=== PATIENT | female | born 1945 | race Caucasian/White ===

== ENCOUNTER 2018-01-20 21:39 | Inpatient (IN) ==
[2018-01-20 22:39] LABS: Basophils # 0.1 10*3/uL (0.0-0.2); Basophils % 0.4 % (0.0-0.8); Eosinophils # 0.1 10*3/uL (0.0-0.87); Eosinophils % 0.4 % (0.00-10.9); Hemoglobin 14.5 GM/DL (12.0-16.0); Immature Granulocytes % 0.7 %; Immature Granulocytes Absolute 0.09 #; Lymphocytes # 1.8 10*3/uL (1.4-4.0); Lymphocytes % 13.1 % (21.3-54.2); Mean Corpuscular Hemoglobin 28 PG (27-34); Mean Corpuscular Volume 84.6 FL (87-102); Mean Platelet Volume 9.5 FL (9.6-12.0); Monocytes # 0.7 10*3/uL (0.11-0.8); Monocytes % 5.2 % (1.7-12.7); Neutrophils # 11.1 10*3/uL (1.4-7.4); Neutrophils % 80.2 % (38.7-73.9); Platelet Count 410 T/CUMM (130-400); Red Cell Distribution Width 13.6 % (9.3-17.3); White Blood Count 13.8 T/CUMM (4-12)
[2018-01-20] MEDS ORDERED: VANCOMYCIN INJ 1,000 MG in SODIUM CHLORIDE 0.9% 250 ML IV STA (22:41)
[2018-01-20] MEDS ORDERED: SODIUM CHLORIDE 0.9% 500 ML IV STA (22:41)
[2018-01-20 22:52] LABS: Apearance,Urine CLOUDY (Clear); Bacteria,Urine Many /HPF (Few); Bilirubin,Urine Negative (Negative); Blood, Urine Small mg/dL (Negative); Glucose,Urine (UA) Negative (Negative); Hyaline Casts,Urine 45 /LPF (0-3); Ketones,Urine Negative (Negative); Nitrite,Urine Negative (Negative); Protein,Urine 30 MG/DL; Urine Color Amber (Yellow); Urine Specific Gravity 1.013 (1.001-1.035); WBC,Urine 844 /HPF (0-6)
[2018-01-20 22:53] LABS: Albumin 2.7 G/DL (3.4-5.0); Bilirubin,Total 0.8 MG/DL (0.2-1.0); CKMB % 3.6 %; Calcium 8.1 MG/DL (8.5-10.1); Potassium 2.6 MMOL/L (3.5-5.1); Troponin I Only 0.02 NG/ML (0.00-0.045)
[2018-01-20 22:54] LABS: PT Patient Result 10.5 SECS; Partial Thromboplastin Time 25.7 SECS (0-40)
[2018-01-21] MEDS ORDERED: VANCOMYCIN 1,000 MG VIAL ONE (00:31)
[2018-01-21 00:49] LABS: Lactic Acid 1.9 MMOL/L (0.4-2.0)
[2018-01-21] MEDS ORDERED: SODIUM CHLORIDE 0.9% 1,000 ML IV SCH (01:30)
[2018-01-21] MEDS ORDERED: PIPERACILLIN/TAZOBACTAM 3,375 MG VIAL IV ONE (02:09)
[2018-01-21] MEDS ORDERED: SODIUM CHLORIDE 0.9% 100 ML IV ONE (02:10)
[2018-01-21] MEDS ORDERED: POTASSIUM CHLORIDE 20 MEQ TABLET PO ONE (02:10)
[2018-01-21] MEDS: POTASSIUM CHLORIDE 20 MEQ TABLET PO SCH ×2 (02:25→06:04)
[2018-01-21] MEDS: PIPERACILLIN/TAZOBACTAM 3,375 MG in SODIUM CHLORIDE 0.9% 100 ML IV SCH ×3 (02:26→17:24)
[2018-01-21] MEDS ORDERED: PNEUMOCOCCAL VACCINE (13 VALENT) 0.5 ML SYRINGE IM ONE (05:20)
[2018-01-21] MEDS ORDERED: GLUCAGON 1 MG VIAL IM PRN (06:38)
[2018-01-21] MEDS ORDERED: DEXTROSE 50% 25 GM/50 ML VIAL IV PRN (06:38)
[2018-01-21 06:45] LABS: Basophils # 0.1 10*3/uL (0.0-0.2); Basophils % 0.5 % (0.0-0.8); Eosinophils # 0.1 10*3/uL (0.0-0.87); Eosinophils % 0.9 % (0.00-10.9); Hematocrit 39.1 VOL% (35.7-47.0); Hemoglobin 12.6 GM/DL (12.0-16.0); Immature Granulocytes % 0.9 %; Immature Granulocytes Absolute 0.09 #; Lymphocytes # 1.8 10*3/uL (1.4-4.0); Lymphocytes % 17.4 % (21.3-54.2); Mean Corpuscular HGB Conc 32.2 GM/DL (32-36); Mean Corpuscular Hemoglobin 28 PG (27-34); Mean Corpuscular Volume 85.7 FL (87-102); Mean Platelet Volume 9.5 FL (9.6-12.0); Monocytes # 0.7 10*3/uL (0.11-0.8); Monocytes % 6.5 % (1.7-12.7); Neutrophils # 7.5 10*3/uL (1.4-7.4); Neutrophils % 73.8 % (38.7-73.9); Platelet Count 333 T/CUMM (130-400); Red Blood Count 4.56 MC/CUMM (3.8-5.5); Red Cell Distribution Width 13.7 % (9.3-17.3); White Blood Count 10.2 T/CUMM (4-12)
[2018-01-21 07:07] LABS: Calcium 7.7 MG/DL (8.5-10.1); Osmolality,Calculated 278.5 MOS/KG (273-304); Potassium 2.9 MMOL/L (3.5-5.1)
[2018-01-21] MEDS: INSULIN LISPRO 100 UNIT/ML SUBCUT SCH ×4 (07:49→22:47)
[2018-01-21] MEDS ORDERED: amLODIPine 5 MG TABLET PO SCH (09:00)
[2018-01-21] MEDS ORDERED: FERROUS GLUCONATE 324 MG TABLET PO SCH (09:00)
[2018-01-21] MEDS ORDERED: HALOPERIDOL 5 MG TABLET PO SCH (09:00)
[2018-01-21] MEDS: ENOXAPARIN 40 MG/0.4 ML SYRINGE SUBCUT SCH (09:47)
[2018-01-21] MEDS: GENTAMICIN 0.3% OPH SOLN 5 ML BOTTLE BOTH EYES SCH ×4 (09:47→20:44)
[2018-01-21] MEDS ORDERED: SKIN HEALING OINT (AQUAPHOR) 50 GM TUBE TOP PRN (10:38)
[2018-01-21] MEDS: DESITIN 4OZ/NYSTATIN 15 GRAM MIXTURE PASTE TOP SCH ×2 (10:55→20:44)
[2018-01-21] MEDS ORDERED: MORPHINE 2 MG/1 ML SYRINGE IV PRN (11:23)
[2018-01-21] MEDS ORDERED: TUBERCULIN SKIN TEST 0.1 ML SYRINGE INTRADERM ONE (15:47)
[2018-01-21] MEDS: BACITRACIN OINT 0.9 GM PACK TOP SCH (16:54)
[2018-01-21] MEDS ORDERED: CHLORHEXIDINE 4% SOLN 118 ML BOTTLE TOP ONE (17:00)
[2018-01-21] MEDS: SODIUM CHLOR 0.9% KCL 20 MEQ 20 MEQ/1,000 ML BAG IV SCH (17:22)
[2018-01-21] MEDS ORDERED: SIMVASTATIN 20 MG TABLET PO SCH (21:00)
[2018-01-21] MEDS ORDERED: ONDANSETRON 4 MG/2 ML VIAL IV PRN (21:22)
[2018-01-22] MEDS: PIPERACILLIN/TAZOBACTAM 3,375 MG in SODIUM CHLORIDE 0.9% 100 ML IV SCH ×3 (03:03→17:25)
[2018-01-22] MEDS: GENTAMICIN 0.3% OPH SOLN 5 ML BOTTLE BOTH EYES SCH ×6 (03:03→21:34)
[2018-01-22 06:34] LABS: Basophils % 0.4 % (0.0-0.8); Eosinophils # 0.1 10*3/uL (0.0-0.87); Eosinophils % 1.3 % (0.00-10.9); Hematocrit 32.1 VOL% (35.7-47.0); Hemoglobin 10.6 GM/DL (12.0-16.0); Immature Granulocytes % 0.5 %; Immature Granulocytes Absolute 0.04 #; Lymphocytes # 1.8 10*3/uL (1.4-4.0); Lymphocytes % 23.3 % (21.3-54.2); Mean Corpuscular Hemoglobin 28 PG (27-34); Mean Corpuscular Volume 84.5 FL (87-102); Mean Platelet Volume 9.4 FL (9.6-12.0); Monocytes # 0.5 10*3/uL (0.11-0.8); Neutrophils # 5.4 10*3/uL (1.4-7.4); Neutrophils % 68.5 % (38.7-73.9); Platelet Count 268 T/CUMM (130-400); Red Cell Distribution Width 14.1 % (9.3-17.3); White Blood Count 7.9 T/CUMM (4-12)
[2018-01-22 07:03] LABS: Calcium 7.2 MG/DL (8.5-10.1); Potassium 2.8 MMOL/L (3.5-5.1)
[2018-01-22] MEDS: INSULIN LISPRO 100 UNIT/ML SUBCUT SCH ×4 (08:48→20:46)
[2018-01-22] MEDS: ENOXAPARIN 40 MG/0.4 ML SYRINGE SUBCUT SCH (08:49)
[2018-01-22] MEDS: FLUCONAZOLE 200 MG TABLET PO SCH (08:49)
[2018-01-22] MEDS: DESITIN 4OZ/NYSTATIN 15 GRAM MIXTURE PASTE TOP SCH ×2 (08:50→21:37)
[2018-01-22] MEDS: SODIUM CHLOR 0.9% KCL 20 MEQ 20 MEQ/1,000 ML BAG IV SCH ×2 (08:50→08:51)
[2018-01-22] MEDS: BACITRACIN OINT 0.9 GM PACK TOP SCH (09:01)
[2018-01-23] MEDS: SODIUM CHLOR 0.9% KCL 20 MEQ 20 MEQ/1,000 ML BAG IV SCH ×4 (01:27→16:47)
[2018-01-23] MEDS: PIPERACILLIN/TAZOBACTAM 3,375 MG in SODIUM CHLORIDE 0.9% 100 ML IV SCH ×3 (02:26→17:03)
[2018-01-23] MEDS: GENTAMICIN 0.3% OPH SOLN 5 ML BOTTLE BOTH EYES SCH ×6 (02:27→21:12)
[2018-01-23 06:15] LABS: Basophils % 0.4 % (0.0-0.8); Eosinophils # 0.1 10*3/uL (0.0-0.87); Hematocrit 31.7 VOL% (35.7-47.0); Hemoglobin 10.5 GM/DL (12.0-16.0); Immature Granulocytes % 0.6 %; Immature Granulocytes Absolute 0.04 #; Lymphocytes # 2.1 10*3/uL (1.4-4.0); Mean Corpuscular HGB Conc 33.1 GM/DL (32-36); Mean Corpuscular Hemoglobin 28 PG (27-34); Mean Corpuscular Volume 84.8 FL (87-102); Mean Platelet Volume 9.3 FL (9.6-12.0); Monocytes # 0.3 10*3/uL (0.11-0.8); Monocytes % 4.4 % (1.7-12.7); Neutrophils # 4.3 10*3/uL (1.4-7.4); Neutrophils % 63.6 % (38.7-73.9); Platelet Count 276 T/CUMM (130-400); Red Blood Count 3.74 MC/CUMM (3.8-5.5); Red Cell Distribution Width 14.2 % (9.3-17.3); White Blood Count 6.8 T/CUMM (4-12)
[2018-01-23 06:54] LABS: Calcium 7.5 MG/DL (8.5-10.1); Osmolality,Calculated 277.3 MOS/KG (273-304)
[2018-01-23] MEDS: INSULIN LISPRO 100 UNIT/ML SUBCUT SCH ×4 (08:33→21:11)
[2018-01-23] MEDS: ENOXAPARIN 40 MG/0.4 ML SYRINGE SUBCUT SCH (08:41)
[2018-01-23] MEDS: FLUCONAZOLE 200 MG TABLET PO SCH (08:41)
[2018-01-23] MEDS: DESITIN 4OZ/NYSTATIN 15 GRAM MIXTURE PASTE TOP SCH ×2 (08:41→21:14)
[2018-01-23] MEDS: BACITRACIN OINT 0.9 GM PACK TOP SCH (10:55)
[2018-01-23] MEDS: ACETAMINOPHEN 325 MG TABLET PO PRN (15:34)
[2018-01-24] MEDS ORDERED: ALBUTEROL/IPRATROPIUM 3 ML NEB RESP TX ONE (01:18)
[2018-01-24] MEDS: PIPERACILLIN/TAZOBACTAM 3,375 MG in SODIUM CHLORIDE 0.9% 100 ML IV SCH ×3 (01:29→16:45)
[2018-01-24] MEDS: GENTAMICIN 0.3% OPH SOLN 5 ML BOTTLE BOTH EYES SCH ×6 (01:31→21:36)
[2018-01-24] MEDS: SODIUM CHLOR 0.9% KCL 20 MEQ 20 MEQ/1,000 ML BAG IV SCH ×2 (05:34→08:47)
[2018-01-24 05:46] LABS: Basophils % 0.3 % (0.0-0.8); Eosinophils # 0.1 10*3/uL (0.0-0.87); Eosinophils % 1.3 % (0.00-10.9); Hematocrit 32.4 VOL% (35.7-47.0); Hemoglobin 10.3 GM/DL (12.0-16.0); Immature Granulocytes % 0.7 %; Immature Granulocytes Absolute 0.05 #; Lymphocytes # 1.8 10*3/uL (1.4-4.0); Lymphocytes % 25.4 % (21.3-54.2); Mean Corpuscular HGB Conc 31.8 GM/DL (32-36); Mean Corpuscular Hemoglobin 28 PG (27-34); Mean Corpuscular Volume 86.4 FL (87-102); Mean Platelet Volume 9.5 FL (9.6-12.0); Monocytes # 0.4 10*3/uL (0.11-0.8); Monocytes % 4.9 % (1.7-12.7); Neutrophils # 4.8 10*3/uL (1.4-7.4); Neutrophils % 67.4 % (38.7-73.9); Platelet Count 264 T/CUMM (130-400); Red Blood Count 3.75 MC/CUMM (3.8-5.5); White Blood Count 7.1 T/CUMM (4-12)
[2018-01-24 06:21] LABS: Calcium 7.3 MG/DL (8.5-10.1); Potassium 3.1 MMOL/L (3.5-5.1)
[2018-01-24] MEDS: FLUCONAZOLE 200 MG TABLET PO SCH (08:44)
[2018-01-24] MEDS: INSULIN LISPRO 100 UNIT/ML SUBCUT SCH ×4 (08:44→21:39)
[2018-01-24] MEDS: DESITIN 4OZ/NYSTATIN 15 GRAM MIXTURE PASTE TOP SCH ×2 (08:45→21:36)
[2018-01-24] MEDS: ENOXAPARIN 40 MG/0.4 ML SYRINGE SUBCUT SCH (08:45)
[2018-01-24] MEDS: BACITRACIN OINT 0.9 GM PACK TOP SCH (09:48)
[2018-01-24 10:34] LABS: Alanine Aminotransferase < 6 U/L (13-56); Albumin 1.8 G/DL (3.4-5.0); Alkaline Phosphatase 131 U/L (45-117); Aspartate Amino Transferase 15 U/L (0-37); Bilirubin,Total < 0.39 MG/DL (0.2-1.0); Blood Urea Nitrogen 8 MG/DL (7-18); Calcium 7.3 MG/DL (8.5-10.1); Glucose 98 MG/DL (74-106); Potassium 3.1 MMOL/L (3.5-5.1); Sodium 143 MMOL/L (136-145); Total Protein 5.2 G/DL (6.4-8.3)
[2018-01-24] MEDS: POTASSIUM CHLORIDE RIDER 10 MEQ in PREMIX 1 EACH IV PRN ×4 (13:01→22:01)
[2018-01-24] MEDS: ACETAMINOPHEN 325 MG TABLET PO PRN (22:02)
[2018-01-25] MEDS: GENTAMICIN 0.3% OPH SOLN 5 ML BOTTLE BOTH EYES SCH ×6 (02:14→22:17)
[2018-01-25] MEDS: PIPERACILLIN/TAZOBACTAM 3,375 MG in SODIUM CHLORIDE 0.9% 100 ML IV SCH ×3 (02:15→17:24)
[2018-01-25] MEDS: SODIUM CHLOR 0.9% KCL 20 MEQ 20 MEQ/1,000 ML BAG IV SCH ×2 (02:23→13:24)
[2018-01-25] MEDS: INSULIN LISPRO 100 UNIT/ML SUBCUT SCH ×4 (07:36→22:18)
[2018-01-25] MEDS: ENOXAPARIN 40 MG/0.4 ML SYRINGE SUBCUT SCH (09:10)
[2018-01-25] MEDS: ACETAMINOPHEN 325 MG TABLET PO PRN (09:10)
[2018-01-25] MEDS: BACITRACIN OINT 0.9 GM PACK TOP SCH (09:11)
[2018-01-25] MEDS: DESITIN 4OZ/NYSTATIN 15 GRAM MIXTURE PASTE TOP SCH ×2 (09:11→22:17)
[2018-01-26] MEDS: PIPERACILLIN/TAZOBACTAM 3,375 MG in SODIUM CHLORIDE 0.9% 100 ML IV SCH ×2 (01:01→08:23)
[2018-01-26] MEDS: SODIUM CHLOR 0.9% KCL 20 MEQ 20 MEQ/1,000 ML BAG IV SCH ×2 (01:02→05:00)
[2018-01-26] MEDS: GENTAMICIN 0.3% OPH SOLN 5 ML BOTTLE BOTH EYES SCH ×4 (01:02→12:51)
[2018-01-26] MEDS: INSULIN LISPRO 100 UNIT/ML SUBCUT SCH ×2 (07:55→11:58)
[2018-01-26] MEDS: ENOXAPARIN 40 MG/0.4 ML SYRINGE SUBCUT SCH (08:23)
[2018-01-26] MEDS: DESITIN 4OZ/NYSTATIN 15 GRAM MIXTURE PASTE TOP SCH (08:24)
[2018-01-26] MEDS: BACITRACIN OINT 0.9 GM PACK TOP SCH (08:24)
[2018-01-26] MEDS: ACETAMINOPHEN 325 MG TABLET PO PRN (10:55)
[2018-01-26 12:07] VITALS: BP 145/81
[2018-01-27] MEDS ORDERED: PIOGLITAZONE 15 MG TABLET PO SCH (09:00)
[2018-01-27] MEDS ORDERED: amLODIPine 5 MG TABLET PO SCH (09:00)
[2018-01-27] MEDS ORDERED: HALOPERIDOL 5 MG TABLET PO SCH (09:00)
== END 2018-01-26 14:27 | DRG 689 ==
LOC: EDBD → EDUNIT# → N.ED 21:39 → N.EDINP 01-21 01:17 → N.2E 01-21 03:00
PROVIDERS: ADMIT Family Medicine; ATTEND Family Medicine

== ENCOUNTER 2022-07-02 06:22 | Inpatient (IN) ==
[2022-07-02] MEDS ORDERED: ONDANSETRON 4 MG/2 ML VIAL IV STA (06:37)
[2022-07-02] MEDS ORDERED: SODIUM CHLORIDE 0.9% 1,000 ML IV STA ×2 (06:37→08:26)
[2022-07-02 06:57] LABS: Basophils # 0.1 10*3/uL (0.0-0.2); Basophils % 0.2 % (0.0-0.8); Hematocrit 43.2 VOL% (35.7-47.0); Hemoglobin 14.3 GM/DL (12.0-16.0); Immature Granulocytes % 0.9 %; Immature Granulocytes Absolute 0.25 #; Lymphocytes # 0.9 10*3/uL (1.4-4.0); Mean Corpuscular HGB Conc 33.1 GM/DL (32-36); Mean Corpuscular Volume 86.1 FL (87-102); Mean Platelet Volume 9.9 FL (9.6-12.0); Monocytes # 1.1 10*3/uL (0.11-0.8); Monocytes % 3.6 % (1.7-12.7); Neutrophils % 92.3 % (38.7-73.9); Platelet Count 390 T/CUMM (130-400); Red Blood Count 5.02 MC/CUMM (3.8-5.5); Red Cell Distribution Width 13.4 % (9.3-17.3); White Blood Count 28.8 T/CUMM (4-12)
[2022-07-02 07:08] LABS: PT Patient Result 10.7 SECS (10.1-12.1); Partial Thromboplastin Time 23.6 SECS (23.7-32.9)
[2022-07-02 07:15] LABS: Lymphocytes 3 % (20-55); Microcytosis Slight; Platelet Estimate Adequate; Total Cells Counted 100
[2022-07-02 07:22] LABS: Albumin 3.4 G/DL (3.4-5.0); Bilirubin,Total 0.4 MG/DL (0.20-1.00); Calcium 9.3 MG/DL (8.5-10.1); Osmolality,Calculated 288.7 MOS/KG (273-304); Potassium 4.6 MMOL/L (3.5-5.1); Total Protein 7.5 G/DL (6.4-8.2)
[2022-07-02] MEDS ORDERED: hydrALAZINE 20 MG/1 ML VIAL IV PRN (09:48)
[2022-07-02] MEDS ORDERED: MORPHINE 2 MG/1 ML SYRINGE IV PRN ×3 (09:48→11:14)
[2022-07-02] MEDS ORDERED: GLUCAGON 1 MG VIAL IM PRN ×2 (09:48→10:53)
[2022-07-02] MEDS ORDERED: PIPERACILLIN/TAZOBACTAM 3,375 MG in SODIUM CHLORIDE 0.9% 100 ML IV STA (09:51)
[2022-07-02] MEDS ORDERED: DEXTROSE 10% 250 ML BAG IV PRN (09:54)
[2022-07-02] MEDS ORDERED: DEXTROSE 50% 25 GM/50 ML VIAL IV PRN (10:53)
[2022-07-02] MEDS: ONDANSETRON 4 MG/2 ML VIAL IV PRN (11:36)
[2022-07-02] MEDS: PANTOPRAZOLE 40 MG VIAL IV SCH ×2 (12:04→21:19)
[2022-07-02 12:09] LABS: Hematocrit 38.3 VOL% (35.7-47.0); Hemoglobin 12.5 GM/DL (12.0-16.0)
[2022-07-02] MEDS: INSULIN LISPRO 100 UNIT/ML SUBCUT SCH ×3 (12:19→20:41)
[2022-07-02] MEDS: PIPERACILLIN/TAZOBACTAM 3,375 MG in SODIUM CHLORIDE 0.9% 100 ML IV SCH (17:00)
[2022-07-02] MEDS: SODIUM CHLORIDE 0.9% 1,000 ML IV SCH ×2 (22:59)
[2022-07-03 02:10] LABS: Basophils # 0.1 10*3/uL (0.0-0.2); Basophils % 0.2 % (0.0-0.8); Hematocrit 34.2 VOL% (35.7-47.0); Hemoglobin 10.9 GM/DL (12.0-16.0); Immature Granulocytes % 0.9 %; Immature Granulocytes Absolute 0.23 #; Lymphocytes # 1.6 10*3/uL (1.4-4.0); Lymphocytes % 6.1 % (21.3-54.2); Mean Corpuscular HGB Conc 31.9 GM/DL (32-36); Mean Corpuscular Volume 88.4 FL (87-102); Monocytes # 1.2 10*3/uL (0.11-0.8); Monocytes % 4.5 % (1.7-12.7); Neutrophils % 88.3 % (38.7-73.9); Platelet Count 298 T/CUMM (130-400); Red Blood Count 3.87 MC/CUMM (3.8-5.5); Red Cell Distribution Width 13.9 % (9.3-17.3); White Blood Count 25.7 T/CUMM (4-12)
[2022-07-03] MEDS: PIPERACILLIN/TAZOBACTAM 3,375 MG in SODIUM CHLORIDE 0.9% 100 ML IV SCH ×3 (02:15→16:09)
[2022-07-03 02:32] LABS: Albumin 2.5 G/DL (3.4-5.0); Bilirubin,Total 0.4 MG/DL (0.20-1.00); Calcium 7.9 MG/DL (8.5-10.1); Potassium 3.6 MMOL/L (3.5-5.1); Total Protein 6.2 G/DL (6.4-8.2)
[2022-07-03 03:18] LABS: Lymphocytes 6 % (20-55); Total Cells Counted 100
[2022-07-03 03:19] LABS: Hypochromia Slight; Microcytosis Slight; Platelet Estimate Adequate
[2022-07-03] MEDS: SODIUM CHLORIDE 0.9% 1,000 ML IV SCH ×3 (07:13→16:09)
[2022-07-03] MEDS: INSULIN LISPRO 100 UNIT/ML SUBCUT SCH ×4 (07:14→21:14)
[2022-07-03] MEDS: HALOPERIDOL 5 MG TABLET PO SCH (08:46)
[2022-07-03] MEDS: PANTOPRAZOLE 40 MG VIAL IV SCH ×3 (08:50→21:13)
[2022-07-03 10:19] LABS: Hematocrit 33.6 VOL% (35.7-47.0); Hemoglobin 10.9 GM/DL (12.0-16.0)
[2022-07-04] MEDS: PIPERACILLIN/TAZOBACTAM 3,375 MG in SODIUM CHLORIDE 0.9% 100 ML IV SCH ×3 (01:42→18:45)
[2022-07-04 05:49] LABS: Basophils % 0.2 % (0.0-0.8); Eosinophils % 0.2 % (0.00-10.9); Hematocrit 30.7 VOL% (35.7-47.0); Hemoglobin 9.7 GM/DL (12.0-16.0); Immature Granulocytes % 1.1 %; Lymphocytes % 10.7 % (21.3-54.2); Mean Corpuscular HGB Conc 31.6 GM/DL (32-36); Mean Corpuscular Volume 90.8 FL (87-102); Mean Platelet Volume 10.2 FL (9.6-12.0); Monocytes # 0.9 10*3/uL (0.11-0.8); Monocytes % 4.6 % (1.7-12.7); Neutrophils % 83.2 % (38.7-73.9); Platelet Count 226 T/CUMM (130-400); Red Blood Count 3.38 MC/CUMM (3.8-5.5); Red Cell Distribution Width 14.2 % (9.3-17.3); White Blood Count 18.9 T/CUMM (4-12)
[2022-07-04 06:12] LABS: Calcium 7.3 MG/DL (8.5-10.1); Osmolality,Calculated 291.4 MOS/KG (273-304); Potassium 3.1 MMOL/L (3.5-5.1)
[2022-07-04] MEDS: INSULIN LISPRO 100 UNIT/ML SUBCUT SCH ×4 (08:36→20:38)
[2022-07-04] MEDS: PANTOPRAZOLE 40 MG VIAL IV SCH ×2 (09:05→22:03)
[2022-07-04] MEDS: HALOPERIDOL 5 MG TABLET PO SCH (09:06)
[2022-07-04] MEDS: SODIUM CHLOR 0.45% KCL 20 MEQ 20 MEQ/1,000 ML BAG IV SCH (09:36)
[2022-07-04] MEDS: ONDANSETRON 4 MG/2 ML VIAL IV PRN (09:36)
[2022-07-04] MEDS: SODIUM CHLORIDE 0.9% 1,000 ML IV SCH (10:35)
[2022-07-04] MEDS: ACETAMINOPHEN 325 MG TABLET PO PRN (20:33)
[2022-07-05] MEDS: SODIUM CHLOR 0.45% KCL 20 MEQ 20 MEQ/1,000 ML BAG IV SCH ×3 (00:29→16:44)
[2022-07-05] MEDS: PIPERACILLIN/TAZOBACTAM 3,375 MG in SODIUM CHLORIDE 0.9% 100 ML IV SCH ×3 (02:04→16:45)
[2022-07-05 05:44] LABS: Basophils % 0.2 % (0.0-0.8); Eosinophils % 0.1 % (0.00-10.9); Hematocrit 32.5 VOL% (35.7-47.0); Hemoglobin 10.3 GM/DL (12.0-16.0); Immature Granulocytes % 1.4 %; Immature Granulocytes Absolute 0.28 #; Lymphocytes # 1.8 10*3/uL (1.4-4.0); Lymphocytes % 9.2 % (21.3-54.2); Mean Corpuscular HGB Conc 31.7 GM/DL (32-36); Mean Corpuscular Volume 88.1 FL (87-102); Mean Platelet Volume 10.1 FL (9.6-12.0); Monocytes # 1.4 10*3/uL (0.11-0.8); Monocytes % 7.3 % (1.7-12.7); Neutrophils % 81.8 % (38.7-73.9); Platelet Count 240 T/CUMM (130-400); Red Blood Count 3.69 MC/CUMM (3.8-5.5); Red Cell Distribution Width 14.1 % (9.3-17.3); White Blood Count 19.4 T/CUMM (4-12)
[2022-07-05 06:16] LABS: Albumin 1.9 G/DL (3.4-5.0); Bilirubin,Total 0.5 MG/DL (0.20-1.00); Calcium 7.4 MG/DL (8.5-10.1); Osmolality,Calculated 280.3 MOS/KG (273-304); Potassium 2.9 MMOL/L (3.5-5.1); Total Protein 5.7 G/DL (6.4-8.2)
[2022-07-05] MEDS: INSULIN LISPRO 100 UNIT/ML SUBCUT SCH ×4 (07:40→21:19)
[2022-07-05] MEDS: HALOPERIDOL 5 MG TABLET PO SCH (09:56)
[2022-07-05] MEDS: PANTOPRAZOLE 40 MG VIAL IV SCH ×2 (09:58→21:12)
[2022-07-05] MEDS ORDERED: MAGNESIUM SULF RIDER 2 GM/50 ML PREMIX IV ONE (10:46)
[2022-07-05 11:08] LABS: % Iron Saturation 13.9 % (18-50); Folate 10.8 NG/ML (5.38-24.0)
[2022-07-05] MEDS: POTASSIUM CHLORIDE 20 MEQ TABLET PO PRN ×3 (12:07→18:17)
[2022-07-05] MEDS ORDERED: POTASSIUM CHLORIDE 20 MEQ TABLET PO ONE (13:18)
[2022-07-05] MEDS: ACETAMINOPHEN 325 MG TABLET PO PRN (18:33)
[2022-07-06] MEDS: PIPERACILLIN/TAZOBACTAM 3,375 MG in SODIUM CHLORIDE 0.9% 100 ML IV SCH ×3 (01:12→17:01)
[2022-07-06] MEDS: ACETAMINOPHEN 325 MG TABLET PO PRN (01:12)
[2022-07-06] MEDS: SODIUM CHLOR 0.45% KCL 20 MEQ 20 MEQ/1,000 ML BAG IV SCH ×2 (05:22→22:05)
[2022-07-06 05:58] LABS: Basophils # 0.1 10*3/uL (0.0-0.2); Basophils % 0.2 % (0.0-0.8); Eosinophils % 0.1 % (0.00-10.9); Immature Granulocytes % 1.5 %; Immature Granulocytes Absolute 0.36 #; Lymphocytes % 4.1 % (21.3-54.2); Mean Corpuscular HGB Conc 32.4 GM/DL (32-36); Mean Corpuscular Volume 87.6 FL (87-102); Mean Platelet Volume 10.2 FL (9.6-12.0); Monocytes # 2.4 10*3/uL (0.11-0.8); Monocytes % 9.8 % (1.7-12.7); Neutrophils % 84.3 % (38.7-73.9); Platelet Count 272 T/CUMM (130-400); Red Blood Count 3.88 MC/CUMM (3.8-5.5); Red Cell Distribution Width 14.2 % (9.3-17.3); White Blood Count 24.7 T/CUMM (4-12)
[2022-07-06 06:27] LABS: Calcium 7.8 MG/DL (8.5-10.1); Osmolality,Calculated 277.7 MOS/KG (273-304); Potassium 3.9 MMOL/L (3.5-5.1)
[2022-07-06 07:05] LABS: Band Neutrophils 7 % (0-10); Hypochromia Slight; Lymphocytes 1 % (20-55); Microcytosis Slight; Total Cells Counted 100
[2022-07-06 07:06] LABS: Platelet Estimate Normal
[2022-07-06] MEDS: HALOPERIDOL 5 MG TABLET PO SCH (10:36)
[2022-07-06] MEDS: PANTOPRAZOLE 40 MG VIAL IV SCH ×2 (10:36→21:16)
[2022-07-06] MEDS: INSULIN LISPRO 100 UNIT/ML SUBCUT SCH ×4 (10:36→22:02)
[2022-07-06] MEDS ORDERED: MAGNESIUM SULF RIDER 2 GM/50 ML PREMIX IV ONE (14:45)
[2022-07-06] MEDS: FERRIC GLUCONATE COMPLEX 125 MG in SODIUM CHLORIDE 0.9% 100 ML IV SCH (17:01)
[2022-07-07] MEDS: PIPERACILLIN/TAZOBACTAM 3,375 MG in SODIUM CHLORIDE 0.9% 100 ML IV SCH ×2 (00:20→11:46)
[2022-07-07 05:55] LABS: Basophils # 0.1 10*3/uL (0.0-0.2); Basophils % 0.3 % (0.0-0.8); Eosinophils # 0.1 10*3/uL (0.0-0.87); Eosinophils % 0.2 % (0.00-10.9); Hematocrit 35.3 VOL% (35.7-47.0); Hemoglobin 11.7 GM/DL (12.0-16.0); Immature Granulocytes Absolute 0.96 #; Lymphocytes # 1.3 10*3/uL (1.4-4.0); Mean Corpuscular HGB Conc 33.1 GM/DL (32-36); Mean Corpuscular Volume 86.5 FL (87-102); Monocytes # 2.4 10*3/uL (0.11-0.8); Monocytes % 7.4 % (1.7-12.7); NRBC # 0.02 10*3/uL; Neutrophils % 85.1 % (38.7-73.9); Platelet Count 282 T/CUMM (130-400); Red Blood Count 4.08 MC/CUMM (3.8-5.5); Red Cell Distribution Width 14.5 % (9.3-17.3); White Blood Count 32.4 T/CUMM (4-12)
[2022-07-07 06:12] LABS: Calcium 8.2 MG/DL (8.5-10.1); Osmolality,Calculated 274.8 MOS/KG (273-304); Potassium 4.8 MMOL/L (3.5-5.1)
[2022-07-07 06:18] LABS: Band Neutrophils 1 % (0-10); Lymphocytes 5 % (20-55); Platelet Estimate Adequate; Total Cells Counted 100
[2022-07-07 07:47] VITALS: BP 105/53
[2022-07-07] MEDS: INSULIN LISPRO 100 UNIT/ML SUBCUT SCH ×4 (08:07→21:15)
[2022-07-07] MEDS ORDERED: CHOLECALCIFEROL 1,000 UNIT TABLET PO SCH (09:00)
[2022-07-07] MEDS: ACETAMINOPHEN 325 MG TABLET PO PRN (09:01)
[2022-07-07] MEDS: HALOPERIDOL 5 MG TABLET PO SCH (09:01)
[2022-07-07] MEDS: FERRIC GLUCONATE COMPLEX 125 MG in SODIUM CHLORIDE 0.9% 100 ML IV SCH (09:03)
[2022-07-07] MEDS ORDERED: VANCOMYCIN INJ 1,000 MG in SODIUM CHLORIDE 0.9% 250 ML IV ONE (09:59)
[2022-07-07] MEDS ORDERED: MAGNESIUM SULF RIDER 2 GM/50 ML PREMIX IV ONE (10:02)
[2022-07-07] MEDS ORDERED: VANCOMYCIN INJ 1,500 MG in SODIUM CHLORIDE 0.9% 500 ML IV PRN (10:27)
[2022-07-07] MEDS ORDERED: methylPREDNISolone SOD SUC 40 MG/1 ML VIAL ONE (10:31)
[2022-07-07] MEDS ORDERED: methylPREDNISolone SOD SUC 40 MG/1 ML VIAL IV ONE (10:39)
[2022-07-07] MEDS ORDERED: LEVALBUTEROL 1.25 MG/3 ML NEB RESP TX ONE (10:39)
[2022-07-07] MEDS ORDERED: SODIUM CHLORIDE 0.9% 500 ML IV ONE ×3 (10:39→22:01)
[2022-07-07 10:55] LABS: Bilirubin,Urine Negative (Negative); Blood, Urine Negative (Negative); Glucose,Urine (UA) Negative (Negative); Ketones,Urine Trace mg/dL (Negative); Nitrite,Urine Negative (Negative); Protein,Urine 30 mg/dL (Negative); RBC,Urine 7 /HPF (0-4); Squamous Epithelial Cell,Urine Occasional /HPF (0-10); Urine Appearance Clear (Clear); Urine Color Yellow (Yellow); Urine Urobilinogen 0.2 eU/dL (<2.0)
[2022-07-07] MEDS ORDERED: VANCOMYCIN INJ 1,750 MG in SODIUM CHLORIDE 0.9% 500 ML IV ONE (11:00)
[2022-07-07] MEDS ORDERED: VANCOMYCIN INJ 1,500 MG in SODIUM CHLORIDE 0.9% 500 ML IV ONE (11:00)
[2022-07-07] MEDS: LEVALBUTEROL 0.63 MG/3 ML NEB RESP TX SCH ×4 (11:10→23:51)
[2022-07-07 11:14] LABS: Arterial Base Excess iSTAT -8 MMOL/L (-2.5-2.5); Arterial Bicarbonate iSTAT 15.6 MMOL/L (20-26); Arterial O2 Saturation iSTAT 97 % (95-100); Arterial PCO2 iSTAT 25 MM HG (35-48); Arterial PO2 iSTAT 85 MM HG (80-95); Arterial Total CO2 iSTAT 16 MMO/L (23-27); Arterial pH iSTAT 7.398 (7.35-7.45)
[2022-07-07] MEDS: CEFEPIME 1,000 MG in SODIUM CHLORIDE 0.9% 100 ML IV SCH ×2 (11:44→17:41)
[2022-07-07] MEDS: SODIUM BICARB INJ 50 MEQ in SODIUM CHLORIDE 0.45% 1,000 ML IV SCH ×2 (11:44→21:38)
[2022-07-07] MEDS: PANTOPRAZOLE 40 MG VIAL IV SCH ×2 (11:45→21:12)
[2022-07-07] MEDS: metroNIDAZOLE INJ 500 MG/100 ML PREMIX IV SCH ×2 (15:11→21:15)
[2022-07-07] MEDS: methylPREDNISolone SOD SUC 40 MG/1 ML VIAL IV SCH ×2 (15:20→21:10)
[2022-07-07] MEDS ORDERED: SODIUM CHLORIDE 0.9% 1,000 ML IV ONE (15:34)
[2022-07-07 15:58] LABS: Calcium 8.2 MG/DL (8.5-10.1); Potassium 4.8 MMOL/L (3.5-5.1)
[2022-07-07] MEDS ORDERED: NOREPINEPHRINE 8 MG in SODIUM CHLORIDE 0.9% 242 ML IV PRN (22:01)
[2022-07-07] MEDS ORDERED: NOREPINEPHRINE 4 MG/4 ML VIAL IV ONE (22:03)
[2022-07-08] MEDS: methylPREDNISolone SOD SUC 40 MG/1 ML VIAL IV SCH (02:26)
[2022-07-08] MEDS: CEFEPIME 1,000 MG in SODIUM CHLORIDE 0.9% 100 ML IV SCH (02:28)
[2022-07-08] MEDS: LEVALBUTEROL 0.63 MG/3 ML NEB RESP TX SCH ×2 (03:00→07:30)
[2022-07-08] MEDS ORDERED: PHENYLEPHRINE DRIP 40 MG/250 ML PREMIX IV ONE (03:27)
[2022-07-08] MEDS: PHENYLEPHRINE DRIP 40 MG/250 ML PREMIX IV PRN ×2 (03:35→08:00)
[2022-07-08] MEDS ORDERED: DIGOXIN 0.5 MG/2 ML AMP IV ONE (04:07)
[2022-07-08 04:23] LABS: Basophils # 0.1 10*3/uL (0.0-0.2); Basophils % 0.3 % (0.0-0.8); Eosinophils # 0.2 10*3/uL (0.0-0.87); Eosinophils % 0.5 % (0.00-10.9); Hematocrit 30.8 VOL% (35.7-47.0); Hemoglobin 10.1 GM/DL (12.0-16.0); Immature Granulocytes % 2.6 %; Immature Granulocytes Absolute 1.08 #; Lymphocytes # 0.5 10*3/uL (1.4-4.0); Lymphocytes % 1.2 % (21.3-54.2); Mean Corpuscular HGB Conc 32.8 GM/DL (32-36); Mean Corpuscular Volume 87.3 FL (87-102); Mean Platelet Volume 10.7 FL (9.6-12.0); Monocytes # 1.2 10*3/uL (0.11-0.8); Monocytes % 2.9 % (1.7-12.7); NRBC # 0.04 10*3/uL; Neutrophils % 92.5 % (38.7-73.9); Platelet Count 328 T/CUMM (130-400); Red Blood Count 3.53 MC/CUMM (3.8-5.5); Red Cell Distribution Width 15.2 % (9.3-17.3)
[2022-07-08 04:26] LABS: White Blood Count 41.8 T/CUMM (4-12)
[2022-07-08 04:34] LABS: Potassium 4.4 MMOL/L (3.5-5.1)
[2022-07-08 04:45] LABS: Band Neutrophils 2 % (0-10); Lymphocytes 2 % (20-55); Platelet Estimate Adequate; Total Cells Counted 100
[2022-07-08] MEDS: metroNIDAZOLE INJ 500 MG/100 ML PREMIX IV SCH (05:23)
[2022-07-08] MEDS ORDERED: SODIUM CHLORIDE 0.9% 500 ML IV ONE (05:53)
[2022-07-08] MEDS: SODIUM BICARB INJ 50 MEQ in SODIUM CHLORIDE 0.45% 1,000 ML IV SCH (08:20)
[2022-07-08] MEDS ORDERED: LORazepam 2 MG/1 ML VIAL IV PRN (09:03)
[2022-07-08] MEDS ORDERED: MORPHINE 2 MG/1 ML SYRINGE IV PRN (09:03)
[2022-07-08] MEDS ORDERED: HALOPERIDOL 5 MG/ML AMP IM PRN (11:26)
[2022-07-08] MEDS ORDERED: DIAZEPAM 10 MG/2 ML SYRINGE IV PRN (11:26)
[2022-07-08] MEDS: HALOPERIDOL 5 MG TABLET PO SCH (11:30)
== END 2022-07-08 11:44 | disposition hospice, inpatient (51) | DRG 377 ==
LOC: EDUNIT# → EDBD → N.ED 06:22 → SUATTDRO 09:48 → N.EDINP 09:48 → N.5E 11:00 → N.CC 07-07 09:55
PROVIDERS: ADMIT Internal Medicine; ATTEND Internal Medicine

== ENCOUNTER 2022-07-08 11:58 | Inpatient (IN) ==
[2022-07-08] MEDS ORDERED: ZINC OXIDE PASTE 113 GM TUBE TOP PRN (12:34)
[2022-07-08] MEDS: MORPHINE 2 MG/1 ML SYRINGE IV PRN ×2 (13:32→17:40)
[2022-07-08] MEDS: DIAZEPAM 10 MG/2 ML SYRINGE IV PRN (16:11)
[2022-07-09] MEDS: MORPHINE 2 MG/1 ML SYRINGE IV PRN ×4 (06:03→15:49)
[2022-07-09] MEDS: DIAZEPAM 10 MG/2 ML SYRINGE IV PRN (09:09)
[2022-07-10] MEDS: MORPHINE 2 MG/1 ML SYRINGE IV PRN ×2 (08:43→14:15)
[2022-07-10] MEDS: DIAZEPAM 10 MG/2 ML SYRINGE IV PRN (14:16)
[2022-07-11] MEDS: MORPHINE 2 MG/1 ML SYRINGE IV PRN ×2 (09:59→22:30)
[2022-07-12] MEDS: MORPHINE 2 MG/1 ML SYRINGE IV PRN ×6 (00:32→22:48)
[2022-07-13] MEDS: DIAZEPAM 10 MG/2 ML SYRINGE IV PRN ×3 (00:51→15:54)
[2022-07-13] MEDS: MORPHINE 2 MG/1 ML SYRINGE IV PRN ×8 (02:31→18:15)
[2022-07-13 22:36] VITALS: BP 84/46
== END 2022-07-14 04:14 | disposition expired | DRG 951 ==
LOC: N.CC 11:58 → SUATTDRO 11:58 → N.3E 17:53
PROVIDERS: ADMIT Internal Medicine; ATTEND Internal Medicine